=== PATIENT | female | born 1985 | race Caucasian/White ===

== ENCOUNTER 2017-04-23 23:52 | Outpatient (CLI) | payer OTHER ==
[~2017-04-23] VITALS: Ht 162.6 cm; Wt 61.8 kg
[2017-04-24 00:12] VITALS: BP 111/72
[2017-04-24] MEDS ORDERED: PREN1TAB60 PO (01:05)
== END 2017-04-24 01:15 | disposition home or self-care (01) ==
LOC: LDOP 23:52
PROVIDERS: ATTEND Obstetrics & Gynecology
DX: O26.893 Other specified pregnancy related conditions, third trimester (principal); R10.9 Unspecified abdominal pain; Z3A.28 28 weeks gestation of pregnancy
CPT/HCPCS: 36415; 59025; 82731; 99201; G0463